=== PATIENT | female | born 1960 | race Hispanic/Latino ===

== ENCOUNTER 2017-10-17 18:47 | Emergency (ER) | payer OTHER ==
[2017-10-17] MEDS ORDERED: BENZONATATE 100 MG CAPSULE PO ONE (19:16)
[2017-10-17] MEDS ORDERED: IPRATROPIUM/ALBUTEROL SULFATE 3 ML SOLUTION IH ONE (19:16)
[2017-10-17 19:22] LABS: BASOPHILS % (AUTO) 0.1 % (0.0-5.0); EOSINOPHILS % (AUTO) 5.5 % (0.0-8.0); HEMATOCRIT 31.1 % (36-48); LYMPHOCYTES % (AUTO) 9.8 % (21.0-51.0); MEAN CORPUSCULAR HEMOGLOBIN 28.6 pg (27.0-33.0); MEAN CORPUSCULAR HGB CONC 34.6 g/dL (32.0-36.0); MEAN CORPUSCULAR VOLUME 82.8 fL (79-99); MONOCYTES % (AUTO) 10.7 % (3.0-13.0); NEUTROPHILS % (AUTO) 73.9 % (40.0-77.0); PLATELET COUNT (AUTO) 134 K/uL (130-400); RED BLOOD CELL COUNT(AUTO) 3.76 MIL/uL (4.00-5.50); RED CELL DISTRIBUTION WIDTH 15.6 % (11.0-15.5); WHITE BLOOD COUNT (AUTO) 10.7 K/uL (4.8-10.8)
[2017-10-17 19:33] LABS: CREATININE 0.9 mg/dL (0.5-1.5); POTASSIUM 3.3 mmol/L (3.5-5.1)
[2017-10-17 19:38] LABS: ALBUMIN 2.8 g/dL (3.5-5.0); BILIRUBIN,TOTAL 1.1 mg/dL (0.2-1.0); TOTAL PROTEIN, SERUM 8.2 g/dL (6.0-8.3)
[2017-10-17 19:49] LABS: APPEARANCE,URINE SL CLOUDY (CLEAR); BILIRUBIN,URINE NEGATIVE (NEGATIVE); COLOR,URINE YELLOW (YELLOW); GLUCOSE, URINE (UA) NEGATIVE (NEGATIVE); KETONES,URINE 5 mg/dL (NEGATIVE); LEUKOCYTE ESTERASE ,URINE NEGATIVE (NEGATIVE); NITRATE,URINE NEGATIVE (NEGATIVE); OCCULT BLOOD,URINE NEGATIVE (NEGATIVE); PROTEIN,URINE TRACE (NEGATIVE); UROBILINOGEN,URINE 0.2 mg/dL (0.2-1.0)
[2017-10-17 19:59] LABS: RBC,URINE 0-1 /HPF (0-1)
[2017-10-17 20:00] LABS: BACTERIA,URINE Few /HPF (None Seen); SQUAMOUS EPITHELIAL CELL,UR Moderate /LPF (0-2)
[2017-10-17] MEDS ORDERED: SODIUM CHLORIDE 0.9% 1000ML 1,000 ML IV ONE (21:08)
[2017-10-18] MEDS ORDERED: FOLI1TAB15 PO (20:42)
[2017-10-18] MEDS ORDERED: VALS1TAB77 PO (20:42)
[2017-10-18] MEDS ORDERED: CEFD300C3 PO (20:42)
[2017-10-18] MEDS ORDERED: IBUP-2077 PO (20:42)
[2017-10-18] MEDS ORDERED: ATOR20TA65 PO (20:42)
[2017-10-18] MEDS ORDERED: GLIM4TAB3 PO (20:42)
[2017-10-18] MEDS ORDERED: METF500T6 PO (20:42)
== END 2017-10-17 22:26 | disposition home or self-care (01) ==
LOC: EDH 18:47
DX: J18.9 Pneumonia, unspecified organism (principal); J11.1 Influenza due to unidentified influenza virus with other respiratory manifestations; E11.9 Type 2 diabetes mellitus without complications; E78.5 Hyperlipidemia, unspecified; I10 Essential (primary) hypertension; Z90.49 Acquired absence of other specified parts of digestive tract; Z90.710 Acquired absence of both cervix and uterus; Z85.72 Personal history of non-Hodgkin lymphomas
CPT/HCPCS: 36415; 71046; 80053; 81001; 82550; 84484; 85025; 87804 ×2; 94640; 96360; 99285; J7030

== ENCOUNTER 2017-10-18 09:54 | Inpatient (IN) | payer OTHER ==
[~2017-10-18] VITALS: Ht 154.9 cm; Wt 73.6 kg
[2017-10-18] MEDS ORDERED: SODIUM CHLORIDE 0.9% 1000ML 1,000 ML IV ONE (10:16)
[2017-10-18] MEDS ORDERED: AZITHROMYCIN 500MG+NS 250ML 250 ML IV ONE (10:17)
[2017-10-18] MEDS ORDERED: ACETAMINOPHEN 325 MG TAB ONE (10:28)
[2017-10-18 10:32] LABS: BASOPHILS % (AUTO) 0.2 % (0.0-5.0); EOSINOPHILS % (AUTO) 3.3 % (0.0-8.0); HEMATOCRIT 31.5 % (36-48); LYMPHOCYTES % (AUTO) 4.7 % (21.0-51.0); MEAN CORPUSCULAR HEMOGLOBIN 28.9 pg (27.0-33.0); MEAN CORPUSCULAR HGB CONC 34.4 g/dL (32.0-36.0); MEAN CORPUSCULAR VOLUME 83.8 fL (79-99); MONOCYTES % (AUTO) 9.1 % (3.0-13.0); NEUTROPHILS % (AUTO) 82.7 % (40.0-77.0); PLATELET COUNT (AUTO) 148 K/uL (130-400); RED BLOOD CELL COUNT(AUTO) 3.75 MIL/uL (4.00-5.50); RED CELL DISTRIBUTION WIDTH 15.4 % (11.0-15.5); WHITE BLOOD COUNT (AUTO) 10.9 K/uL (4.8-10.8)
[2017-10-18] MEDS ORDERED: IPRATROPIUM/ALBUTEROL SULFATE 3 ML SOLUTION IH ONE (10:33)
[2017-10-18 10:41] LABS: CREATININE 0.9 mg/dL (0.5-1.5); POTASSIUM 3.2 mmol/L (3.5-5.1)
[2017-10-18] MEDS ORDERED: ACETAMINOPHEN 325 MG TAB PO PRN (13:00)
[2017-10-18] MEDS ORDERED: ONDANSETRON HCL 4 MG/2 ML VIAL IVP PRN (13:00)
[2017-10-18 13:02] VITALS: BP 125/69
[2017-10-18] MEDS: MEROPENEM 1 GM VIAL IVP SCH ×2 (13:18→17:16)
[2017-10-18] MEDS: IPRATROPIUM/ALBUTEROL SULFATE 3 ML SOLUTION IH SCH ×3 (14:49→21:40)
[2017-10-18 16:00] VITALS: BP 123/60
[2017-10-18 19:00] VITALS: BP 114/62
[2017-10-18] MEDS: GUAIFENESIN-DM 200/20 MG 10 ML PO PRN (20:29)
[2017-10-18] MEDS: INSULIN HUMULIN R 100 UNIT/ML 3ML SQ SCH (20:36)
[2017-10-18] MEDS ORDERED: VALS1TAB77 PO (20:42)
[2017-10-18] MEDS ORDERED: GLIM4TAB3 PO (20:42)
[2017-10-18] MEDS ORDERED: ATOR20TA65 PO (20:42)
[2017-10-18] MEDS ORDERED: IBUP-2077 PO (20:42)
[2017-10-18] MEDS ORDERED: FOLI1TAB15 PO (20:42)
[2017-10-18] MEDS ORDERED: METF500T6 PO (20:42)
[2017-10-18] MEDS ORDERED: CEFD300C3 PO (20:42)
[2017-10-19 00:24] VITALS: BP 126/57
[2017-10-19] MEDS: MEROPENEM 1 GM VIAL IVP SCH ×4 (00:28→18:36)
[2017-10-19] MEDS: IPRATROPIUM/ALBUTEROL SULFATE 3 ML SOLUTION IH SCH ×6 (01:31→21:45)
[2017-10-19 04:00] VITALS: BP 119/58
[2017-10-19 04:09] LABS: BASOPHILS % (AUTO) 0.3 % (0.0-5.0); EOSINOPHILS % (AUTO) 4.4 % (0.0-8.0); HEMATOCRIT 27.4 % (36-48); LYMPHOCYTES % (AUTO) 6.1 % (21.0-51.0); MEAN CORPUSCULAR HEMOGLOBIN 28.8 pg (27.0-33.0); MEAN CORPUSCULAR HGB CONC 34.5 g/dL (32.0-36.0); MEAN CORPUSCULAR VOLUME 83.4 fL (79-99); MONOCYTES % (AUTO) 11.2 % (3.0-13.0); NUCLEATED RED BLOOD CELLS 0.1 % (0.0-0.19); PLATELET COUNT (AUTO) 110 K/uL (130-400); RED BLOOD CELL COUNT(AUTO) 3.29 MIL/uL (4.00-5.50)
[2017-10-19] MEDS: INSULIN HUMULIN R 100 UNIT/ML 3ML SQ SCH ×4 (06:06→20:27)
[2017-10-19 07:30] VITALS: BP 146/67
[2017-10-19] MEDS ORDERED: MORPHINE SULFATE 2 MG/ML 1ML SYG IVP PRN (07:30)
[2017-10-19] MEDS ORDERED: ACETAMINOPHEN-CODEINE 300/30MG TAB PO PRN ×2 (07:30)
[2017-10-19] MEDS ORDERED: LACTULOSE 20 GM/30 ML UDCUP PO PRN (07:30)
[2017-10-19] MEDS ORDERED: POTASSIUM CHLORIDE 20MEQ/100ML 100 ML IV PRN (07:30)
[2017-10-19] MEDS ORDERED: MAG HYDROX/AL HYDROX/SIMETH ES 30 ML SUSP UDCUP PO PRN (07:30)
[2017-10-19] MEDS ORDERED: NITROGLYCERIN 0.4 MG SL TAB SL PRN (07:30)
[2017-10-19] MEDS ORDERED: ACETAMINOPHEN 325 MG TAB PO PRN ×2 (07:30)
[2017-10-19] MEDS ORDERED: GUAIFENESIN-DM 200/20 MG 10 ML PO PRN (07:30)
[2017-10-19] MEDS ORDERED: POTASSIUM CHLORIDE 10% ELIXIR 20 MEQ/15 ML UDCUP PO PRN (07:30)
[2017-10-19] MEDS ORDERED: HYDRALAZINE HCL 20 MG/ML VIAL IV PRN (07:30)
[2017-10-19] MEDS ORDERED: LIDOCAINE HCL-MPF 1% 2ML VIAL IVP PRN (07:30)
[2017-10-19] MEDS ORDERED: ONDANSETRON HCL 4 MG/2 ML VIAL IV PRN (07:30)
[2017-10-19] MEDS ORDERED: KETOROLAC TROMETHAMINE 15MG/ML IV PRN (07:30)
[2017-10-19] MEDS ORDERED: MORPHINE SULFATE 4 MG/1ML SYG IVP PRN (07:30)
[2017-10-19] MEDS ORDERED: NON-FORMULARY MEDICATION 1 EACH (Valsartan/Hydrochlorothiazide (Valsartan-Hctz 160-25 mg T PO SCH (09:00)
[2017-10-19] MEDS: AZITHROMYCIN 500MG+NS 250ML 250 ML IV SCH (09:09)
[2017-10-19] MEDS: GLIMEPIRIDE 2 MG TABLET PO SCH (09:10)
[2017-10-19] MEDS: FOLIC ACID 1 MG TABLET PO SCH (09:10)
[2017-10-19] MEDS: METFORMIN HCL 500 MG TABLET PO SCH (09:10)
[2017-10-19] MEDS: LOSARTAN/HYDROCHLOROTHIAZIDE 50-12.5MG TABLET PO SCH (09:10)
[2017-10-19] MEDS: ENOXAPARIN SODIUM 40 MG/0.4 ML SYRINGE SQ SCH (09:12)
[2017-10-19] MEDS: ACETYLCYSTEINE 20% 200MG/ML 4ML VIAL IH SCH ×3 (09:45→17:21)
[2017-10-19 12:00] VITALS: BP 128/60
[2017-10-19 16:00] VITALS: BP 135/74
[2017-10-19 19:00] VITALS: BP 127/64
[2017-10-19] MEDS: ATORVASTATIN CALCIUM 20 MG TABLET PO SCH (20:36)
[2017-10-19] MEDS: GUAIFENESIN-DM 200/20 MG 10 ML PO PRN (20:36)
[2017-10-20] VITALS: BP 128/61
[2017-10-20] MEDS: MEROPENEM 1 GM VIAL IVP SCH ×4 (00:28→18:57)
[2017-10-20] MEDS: IPRATROPIUM/ALBUTEROL SULFATE 3 ML SOLUTION IH SCH ×6 (02:07→21:31)
[2017-10-20 04:00] VITALS: BP 134/64
[2017-10-20] MEDS: GUAIFENESIN-DM 200/20 MG 10 ML PO PRN (05:34)
[2017-10-20 05:52] LABS: MEAN CORPUSCULAR HEMOGLOBIN 29.3 pg (27.0-33.0); MEAN CORPUSCULAR HGB CONC 34.7 g/dL (32.0-36.0); MEAN CORPUSCULAR VOLUME 84.2 fL (79-99); PLATELET COUNT (AUTO) 124 K/uL (130-400); RED BLOOD CELL COUNT(AUTO) 3.32 MIL/uL (4.00-5.50); RED CELL DISTRIBUTION WIDTH 15.2 % (11.0-15.5); WHITE BLOOD COUNT (AUTO) 6.8 K/uL (4.8-10.8)
[2017-10-20 06:04] LABS: CREATININE 0.9 mg/dL (0.5-1.5)
[2017-10-20 06:12] LABS: POTASSIUM 2.9 mmol/L (3.5-5.1)
[2017-10-20] MEDS: POTASSIUM CHLORIDE 20 MEQ ERTAB PO PRN ×4 (06:40→14:05)
[2017-10-20] MEDS ORDERED: MAGNESIUM 2GM PREMIX 50ML 50 ML IV SCH (07:00)
[2017-10-20] MEDS: INSULIN HUMULIN R 100 UNIT/ML 3ML SQ SCH ×4 (07:30→20:53)
[2017-10-20 08:00] VITALS: BP 141/74
[2017-10-20] MEDS: GLIMEPIRIDE 2 MG TABLET PO SCH (09:09)
[2017-10-20] MEDS: FOLIC ACID 1 MG TABLET PO SCH (09:10)
[2017-10-20] MEDS: METFORMIN HCL 500 MG TABLET PO SCH (09:10)
[2017-10-20] MEDS: LOSARTAN/HYDROCHLOROTHIAZIDE 50-12.5MG TABLET PO SCH (09:11)
[2017-10-20] MEDS: AZITHROMYCIN 500MG+NS 250ML 250 ML IV SCH (09:13)
[2017-10-20] MEDS: ENOXAPARIN SODIUM 40 MG/0.4 ML SYRINGE SQ SCH (09:14)
[2017-10-20 11:28] VITALS: BP 127/70
[2017-10-20] MEDS: ACETYLCYSTEINE 20% 200MG/ML 4ML VIAL IH SCH ×2 (13:24→21:31)
[2017-10-20 16:00] VITALS: BP 134/78
[2017-10-20 19:00] VITALS: BP 117/72
[2017-10-20] MEDS: ATORVASTATIN CALCIUM 20 MG TABLET PO SCH (20:50)
[2017-10-21] VITALS (7 sets, daily range): BP systolic 118–133; BP diastolic 61–75
[2017-10-21] MEDS: MEROPENEM 1 GM VIAL IVP SCH ×4 (00:33→20:45)
[2017-10-21] MEDS: IPRATROPIUM/ALBUTEROL SULFATE 3 ML SOLUTION IH SCH ×6 (01:41→22:29)
[2017-10-21] MEDS: ACETYLCYSTEINE 20% 200MG/ML 4ML VIAL IH SCH ×3 (05:40→22:29)
[2017-10-21] MEDS: INSULIN HUMULIN R 100 UNIT/ML 3ML SQ SCH ×4 (06:28→20:46)
[2017-10-21 08:58] LABS: CREATININE 0.9 mg/dL (0.5-1.5); MAGNESIUM 1.7 mg/dL (1.80-2.40); POTASSIUM 3.6 mmol/L (3.5-5.1)
[2017-10-21] MEDS: FLUTICASONE PROPIONATE 50MCG/SPRAY 16 GM BOTTLE EN SCH (09:59)
[2017-10-21] MEDS: FOLIC ACID 1 MG TABLET PO SCH (09:59)
[2017-10-21] MEDS: LOSARTAN/HYDROCHLOROTHIAZIDE 50-12.5MG TABLET PO SCH (10:05)
[2017-10-21] MEDS: METFORMIN HCL 500 MG TABLET PO SCH (10:05)
[2017-10-21] MEDS: POTASSIUM CHLORIDE 20 MEQ ERTAB PO PRN ×2 (10:06→18:46)
[2017-10-21] MEDS: ENOXAPARIN SODIUM 40 MG/0.4 ML SYRINGE SQ SCH (10:07)
[2017-10-21] MEDS: AZITHROMYCIN 500MG+NS 250ML 250 ML IV SCH (10:08)
[2017-10-21] MEDS: GLIMEPIRIDE 2 MG TABLET PO SCH (10:23)
[2017-10-21] MEDS ORDERED: VANCOMYCIN 1GM+NS 250ML 250 ML IV ONE (15:45)
[2017-10-21] MEDS ORDERED: VANCOMYCIN PROTOCOL PER PHARMACY IV SCH (15:45)
[2017-10-21] MEDS ORDERED: LIDOCAINE HCL 2% JELLY 5 ML TP ONE (18:00)
[2017-10-21] MEDS: ATORVASTATIN CALCIUM 20 MG TABLET PO SCH (20:45)
[2017-10-22] MEDS: MEROPENEM 1 GM VIAL IVP SCH ×4 (02:08→23:24)
[2017-10-22] MEDS: IPRATROPIUM/ALBUTEROL SULFATE 3 ML SOLUTION IH SCH ×6 (02:29→21:54)
[2017-10-22 03:20] VITALS: BP 117/67
[2017-10-22] MEDS: INSULIN HUMULIN R 100 UNIT/ML 3ML SQ SCH ×3 (06:25→20:55)
[2017-10-22] MEDS: ACETYLCYSTEINE 20% 200MG/ML 4ML VIAL IH SCH ×3 (06:54→21:54)
[2017-10-22 07:00] VITALS: BP 124/65
[2017-10-22] MEDS: GLIMEPIRIDE 2 MG TABLET PO SCH (08:41)
[2017-10-22] MEDS: LOSARTAN/HYDROCHLOROTHIAZIDE 50-12.5MG TABLET PO SCH (08:42)
[2017-10-22] MEDS: FLUTICASONE PROPIONATE 50MCG/SPRAY 16 GM BOTTLE EN SCH (08:42)
[2017-10-22] MEDS: ENOXAPARIN SODIUM 40 MG/0.4 ML SYRINGE SQ SCH (08:43)
[2017-10-22] MEDS: METFORMIN HCL 500 MG TABLET PO SCH (08:43)
[2017-10-22] MEDS: AZITHROMYCIN 500MG+NS 250ML 250 ML IV SCH (08:43)
[2017-10-22] MEDS: FOLIC ACID 1 MG TABLET PO SCH (08:43)
[2017-10-22 12:00] VITALS: BP 107/68
[2017-10-22 16:00] VITALS: BP 135/75
[2017-10-22 20:10] VITALS: BP 132/68
[2017-10-22] MEDS: ATORVASTATIN CALCIUM 20 MG TABLET PO SCH (20:59)
[2017-10-22 23:36] VITALS: BP 123/63
[2017-10-23] MEDS: IPRATROPIUM/ALBUTEROL SULFATE 3 ML SOLUTION IH SCH ×6 (02:12→22:16)
[2017-10-23] MEDS: GUAIFENESIN-DM 200/20 MG 10 ML PO PRN ×2 (02:21→22:16)
[2017-10-23 04:02] VITALS: BP 125/57
[2017-10-23] MEDS: MEROPENEM 1 GM VIAL IVP SCH ×4 (06:02→23:31)
[2017-10-23] MEDS: ACETYLCYSTEINE 20% 200MG/ML 4ML VIAL IH SCH ×4 (06:10→18:11)
[2017-10-23] MEDS: INSULIN HUMULIN R 100 UNIT/ML 3ML SQ SCH ×4 (06:53→21:00)
[2017-10-23 08:00] VITALS: BP 137/63
[2017-10-23] MEDS: GLIMEPIRIDE 2 MG TABLET PO SCH (09:25)
[2017-10-23] MEDS: FOLIC ACID 1 MG TABLET PO SCH (10:39)
[2017-10-23] MEDS: LOSARTAN/HYDROCHLOROTHIAZIDE 50-12.5MG TABLET PO SCH (10:40)
[2017-10-23] MEDS: METFORMIN HCL 500 MG TABLET PO SCH (10:40)
[2017-10-23] MEDS: FLUTICASONE PROPIONATE 50MCG/SPRAY 16 GM BOTTLE EN SCH (10:40)
[2017-10-23] MEDS: AZITHROMYCIN 500MG+NS 250ML 250 ML IV SCH (10:40)
[2017-10-23] MEDS: ENOXAPARIN SODIUM 40 MG/0.4 ML SYRINGE SQ SCH (10:45)
[2017-10-23 12:00] VITALS: BP 129/68
[2017-10-23] MEDS ORDERED: ALTEPLASE 2 MG/2 ML IVCATH SCH (15:15)
[2017-10-23 16:00] VITALS: BP 129/74
[2017-10-23] MEDS: ATORVASTATIN CALCIUM 20 MG TABLET PO SCH (22:16)
[2017-10-23 23:00] VITALS: BP 132/65
[2017-10-24] MEDS: IPRATROPIUM/ALBUTEROL SULFATE 3 ML SOLUTION IH SCH ×7 (01:58→21:58)
[2017-10-24] MEDS ORDERED: ALTEPLASE 2 MG/2 ML IVCATH SCH (03:45)
[2017-10-24 03:55] VITALS: BP 125/63
[2017-10-24 06:14] LABS: HEMATOCRIT 28.5 % (36-48); MEAN CORPUSCULAR HEMOGLOBIN 28.5 pg (27.0-33.0); MEAN CORPUSCULAR HGB CONC 33.9 g/dL (32.0-36.0); MEAN CORPUSCULAR VOLUME 83.9 fL (79-99); PLATELET COUNT (AUTO) 99 K/uL (130-400); RED BLOOD CELL COUNT(AUTO) 3.39 MIL/uL (4.00-5.50); RED CELL DISTRIBUTION WIDTH 15.2 % (11.0-15.5); WHITE BLOOD COUNT (AUTO) 4.6 K/uL (4.8-10.8)
[2017-10-24 06:21] LABS: CREATININE 0.8 mg/dL (0.5-1.5); POTASSIUM 3.4 mmol/L (3.5-5.1)
[2017-10-24] MEDS: MEROPENEM 1 GM VIAL IVP SCH ×3 (06:39→18:00)
[2017-10-24] MEDS: INSULIN HUMULIN R 100 UNIT/ML 3ML SQ SCH ×4 (07:21→20:21)
[2017-10-24 07:24] VITALS: BP 127/61
[2017-10-24] MEDS: AZITHROMYCIN 500MG+NS 250ML 250 ML IV SCH (09:02)
[2017-10-24] MEDS: ENOXAPARIN SODIUM 40 MG/0.4 ML SYRINGE SQ SCH (09:03)
[2017-10-24] MEDS: GLIMEPIRIDE 2 MG TABLET PO SCH (09:04)
[2017-10-24] MEDS: LOSARTAN/HYDROCHLOROTHIAZIDE 50-12.5MG TABLET PO SCH (09:04)
[2017-10-24] MEDS: METFORMIN HCL 500 MG TABLET PO SCH (09:04)
[2017-10-24] MEDS: FOLIC ACID 1 MG TABLET PO SCH (09:04)
[2017-10-24] MEDS: FLUTICASONE PROPIONATE 50MCG/SPRAY 16 GM BOTTLE EN SCH (09:05)
[2017-10-24 11:27] VITALS: BP 134/71
[2017-10-24 16:00] VITALS: BP 140/83
[2017-10-24 19:15] VITALS: BP 129/67
[2017-10-24] MEDS: ATORVASTATIN CALCIUM 20 MG TABLET PO SCH (21:39)
[2017-10-24] MEDS: GUAIFENESIN-DM 200/20 MG 10 ML PO PRN (21:39)
[2017-10-24 23:45] VITALS: BP 133/66
[2017-10-25] MEDS: IPRATROPIUM/ALBUTEROL SULFATE 3 ML SOLUTION IH SCH ×6 (01:59→14:09)
[2017-10-25] MEDS: MEROPENEM 1 GM VIAL IVP SCH ×3 (02:07→11:19)
[2017-10-25 03:50] VITALS: BP 128/67
[2017-10-25] MEDS: INSULIN HUMULIN R 100 UNIT/ML 3ML SQ SCH ×2 (06:29→11:30)
[2017-10-25 08:00] VITALS: BP 136/66
[2017-10-25] MEDS: FOLIC ACID 1 MG TABLET PO SCH (11:28)
[2017-10-25] MEDS: AZITHROMYCIN 500MG+NS 250ML 250 ML IV SCH (11:28)
[2017-10-25] MEDS: METFORMIN HCL 500 MG TABLET PO SCH (11:28)
[2017-10-25] MEDS: LOSARTAN/HYDROCHLOROTHIAZIDE 50-12.5MG TABLET PO SCH (11:29)
[2017-10-25] MEDS: GLIMEPIRIDE 2 MG TABLET PO SCH (11:29)
[2017-10-25] MEDS: ENOXAPARIN SODIUM 40 MG/0.4 ML SYRINGE SQ SCH (11:33)
[2017-10-25] MEDS: FLUTICASONE PROPIONATE 50MCG/SPRAY 16 GM BOTTLE EN SCH (11:37)
[2017-10-25 12:00] VITALS: BP 139/73
[2017-10-25] MEDS ORDERED: PNEUMOCOCCAL VACCINE POLYVALENT 0.5 ML/VIAL [PPV] ONE (13:28)
[2017-10-25] MEDS ORDERED: HEPARIN SODIUM/PF 100UNIT/ML 5ML SYRINGE IV SCH (13:45)
[2017-10-25] MEDS ORDERED: PNEUMOCOCCAL VACCINE POLYVALENT 0.5 ML/VIAL [PPV] IM SCH (14:00)
== END 2017-10-25 15:20 | disposition home or self-care (01) | DRG 194 ==
LOC: EDH 09:54 → EDHIP 09:55 → 3AH 11:29
PROVIDERS: ADMIT Internal Medicine Hematology & Oncology; ATTEND Internal Medicine Hematology & Oncology
DX: J15.9 Unspecified bacterial pneumonia (principal); C85.90 Non-Hodgkin lymphoma, unspecified, unspecified site; D89.9 Disorder involving the immune mechanism, unspecified; C81.90 Hodgkin lymphoma, unspecified, unspecified site; D47.3 Essential (hemorrhagic) thrombocythemia; E11.9 Type 2 diabetes mellitus without complications; E78.5 Hyperlipidemia, unspecified; I10 Essential (primary) hypertension; Z83.3 Family history of diabetes mellitus; Z90.710 Acquired absence of both cervix and uterus; Z90.49 Acquired absence of other specified parts of digestive tract; Z92.21 Personal history of antineoplastic chemotherapy; Z28.21 Immunization not carried out because of patient refusal
CPT/HCPCS: 36415; 71045; 71046; 71250; 80048; 80053; 81001; 82550; 82948; 83735; 83880; 84484; 85025; 85027; 87040; 87071; 87205; 87804; 90732; 94640; 94664; 96360; A4218; G0009; J0456; J1642; J1650; J1815; J2185; J2405; J2997; J3370; J3475; J3480; J3490; J7030; J7608

== ENCOUNTER 2018-08-06 20:37 | Emergency (ER) | payer OTHER ==
[~2018-08-06 20:37] MED LIST: ATOR20TA65 PO; FOLI1TAB15 PO; GLIM4TAB3 PO; IBUP-2077 PO; METF-444 PO; VALS1TAB77 PO
== END 2018-08-06 20:48 | disposition left against medical advice (07) ==
LOC: EDH 20:37
DX: R55 Syncope and collapse (principal); Z53.21 Procedure and treatment not carried out due to patient leaving prior to being seen by health care provider

== ENCOUNTER → 2019-03-27 | Outpatient (CLI) | payer OTHER | END | disposition home or self-care (01) | LOC: RAH 08:48 | PROVIDERS: ATTEND Family Medicine | DX: Z12.31 Encounter for screening mammogram for malignant neoplasm of breast (principal) | CPT/HCPCS: 77067 ==

== ENCOUNTER 2019-11-11 16:18 | Emergency (ER) | payer OTHER ==
[~2019-11-11 16:18] MED LIST changes: -GLIM4TAB3 PO; +GLIM4TAB36 PO
[2019-11-11 17:01] LABS: BASOPHILS % (AUTO) 0.5 % (0.0-5.0); EOSINOPHILS % (AUTO) 3.8 % (0.0-8.0); HEMATOCRIT 33.9 % (36-48); LYMPHOCYTES % (AUTO) 14.2 % (21.0-51.0); MEAN CORPUSCULAR HEMOGLOBIN 29.8 pg (27.0-33.0); MEAN CORPUSCULAR HGB CONC 33.6 g/dL (32.0-36.0); MEAN CORPUSCULAR VOLUME 88.5 fL (79-99); MONOCYTES % (AUTO) 6.5 % (3.0-13.0); NEUTROPHILS % (AUTO) 73.6 % (40.0-77.0); PLATELET COUNT (AUTO) 39 K/uL (130-400); RED BLOOD CELL COUNT(AUTO) 3.83 MIL/uL (4.00-5.50); RED CELL DISTRIBUTION WIDTH 13.2 % (11.0-15.5); WHITE BLOOD COUNT (AUTO) 5.6 K/uL (4.8-10.8)
[2019-11-11 17:33] LABS: APPEARANCE,URINE Clear (CLEAR); BILIRUBIN,URINE Negative (NEGATIVE); COLOR,URINE Yellow (YELLOW); GLUCOSE, URINE (UA) Negative (NEGATIVE); KETONES,URINE Negative (NEGATIVE); LEUKOCYTE ESTERASE ,URINE Small (NEGATIVE); NITRATE,URINE Negative (NEGATIVE); OCCULT BLOOD,URINE Negative (NEGATIVE); PH,URINE 7.5 (5.0-8.0); PROTEIN,URINE Negative (NEGATIVE); UROBILINOGEN,URINE 0.2 mg/dL (0.2-1.0)
[2019-11-11] MEDS ORDERED: ORPHENADRINE CITRATE 30 MG/ML ML ONE (17:33)
[2019-11-11] MEDS ORDERED: KETOROLAC TROMETHAMINE 60 MG/2 ML VIAL ONE (17:34)
[2019-11-11 17:42] LABS: BACTERIA,URINE Few /HPF (None Seen); RBC,URINE 0-1 /HPF (0-1)
[2019-11-11 17:43] LABS: SQUAMOUS EPITHELIAL CELL,UR Moderate /HPF (0-2)
[2019-11-27] MEDS ORDERED: ELTR50TA PO (18:49)
== END 2019-11-11 18:43 | disposition home or self-care (01) ==
LOC: EDH 16:18
DX: Z04.1 Encounter for examination and observation following transport accident (principal); E11.9 Type 2 diabetes mellitus without complications; E78.5 Hyperlipidemia, unspecified; I10 Essential (primary) hypertension; Z90.49 Acquired absence of other specified parts of digestive tract; Z90.710 Acquired absence of both cervix and uterus; V43.54XA Car driver injured in collision with van in traffic accident, initial encounter; Y93.89 Activity, other specified; Y92.488 Other paved roadways as the place of occurrence of the external cause; Y99.8 Other external cause status
CPT/HCPCS: 36415; 72100; 81001; 85025; 96372 ×2; 99284; J1885; J2360

== ENCOUNTER 2019-11-27 12:20 | Inpatient (IN) | payer OTHER ==
[~2019-11-27] VITALS: Ht 154.9 cm; Wt 69.6 kg
[2019-11-27 13:02] LABS: BASOPHILS % (AUTO) 0.3 % (0.0-5.0); EOSINOPHILS % (AUTO) 0.7 % (0.0-8.0); HEMATOCRIT 39.4 % (36-48); LYMPHOCYTES % (AUTO) 13.9 % (21.0-51.0); MEAN CORPUSCULAR HEMOGLOBIN 29.8 pg (27.0-33.0); MEAN CORPUSCULAR HGB CONC 34.3 g/dL (32.0-36.0); MONOCYTES % (AUTO) 5.8 % (3.0-13.0); NEUTROPHILS % (AUTO) 75.7 % (40.0-77.0); NUCLEATED RED BLOOD CELLS 0.1 % (0.0-0.19); RED BLOOD CELL COUNT(AUTO) 4.53 MIL/uL (4.00-5.50); RED CELL DISTRIBUTION WIDTH 13.4 % (11.0-15.5); WHITE BLOOD COUNT (AUTO) 20.3 K/uL (4.8-10.8)
[2019-11-27 13:13] LABS: INR 1.02 (0.85-1.15); PARTIAL THROMBOPLASTIN TIME 23.5 SEC (26.3-35.5)
[2019-11-27 13:17] LABS: CREATININE 1.2 mg/dL (0.5-1.5); POTASSIUM 3.4 mmol/L (3.5-5.1)
[2019-11-27 13:20] LABS: ALBUMIN 4.2 g/dL (3.5-5.0); BILIRUBIN,TOTAL 2.2 mg/dL (0.2-1.0); TOTAL PROTEIN, SERUM 7.8 g/dL (6.0-8.3)
[2019-11-27] MEDS ORDERED: ZOSYN 3.375GM+NS 50ML 50 ML IV ONE (13:27)
[2019-11-27] MEDS ORDERED: SODIUM CHLORIDE 0.9% 1000ML 1,000 ML IV ONE (13:27)
[2019-11-27] MEDS ORDERED: IOHEXOL-350 75 ML VIAL IV ONE (13:30)
[2019-11-27 13:32] LABS: PLATELET COUNT (AUTO) 17 K/uL (130-400)
[2019-11-27 13:38] LABS: B-TYPE NATRIURETIC PEPTIDE 142 pg/mL (0-100)
[2019-11-27 14:43] LABS: ABG BASE EXCESS 1.2 mmol/L (-2.0-3.0); ABG HCO3 24.7 mmol/L (21.0-28.0); ABG OXYGEN SATURATION 97.1 % (95.0-99.0); ABG PCO2 36 mmHg (32-45)
[2019-11-27] MEDS: ENOXAPARIN SODIUM 80 MG/0.8 ML SQ SCH (15:30)
[2019-11-27] MEDS: SODIUM CHLORIDE 0.9% 1000ML 1,000 ML IV SCH (15:30)
[2019-11-27 18:21] VITALS: BP 157/91
[2019-11-27] MEDS ORDERED: ELTR50TA PO ×2 (18:49)
[2019-11-27] MEDS ORDERED: METH8TAB6 PO (18:49)
[2019-11-27 20:30] VITALS: BP 124/67
[2019-11-27] MEDS: ATORVASTATIN CALCIUM 20 MG TABLET PO SCH (21:57)
[2019-11-27] MEDS ORDERED: LACTATED RINGERS 1000ML IV SCH (22:15)
[2019-11-27] MEDS ORDERED: LACTATED RINGERS 1000ML 2,000 ML IV ONE (22:22)
[2019-11-27] MEDS: METHYLPREDNISOLONE 4 MG TABLET PO SCH (22:25)
[2019-11-28] VITALS (7 sets, daily range): BP systolic 137–164; BP diastolic 79–91
[2019-11-28] MEDS ORDERED: LACTATED RINGERS 1000ML 1,000 ML IV ONE (03:55)
[2019-11-28] MEDS: ENOXAPARIN SODIUM 80 MG/0.8 ML SQ SCH (05:05)
[2019-11-28 06:51] LABS: HEMATOCRIT 36.7 % (36-48); MEAN CORPUSCULAR HEMOGLOBIN 30.5 pg (27.0-33.0); MEAN CORPUSCULAR HGB CONC 34.6 g/dL (32.0-36.0); PLATELET COUNT (AUTO) 37 K/uL (130-400); RED BLOOD CELL COUNT(AUTO) 4.17 MIL/uL (4.00-5.50); RED CELL DISTRIBUTION WIDTH 13.4 % (11.0-15.5); WHITE BLOOD COUNT (AUTO) 16.3 K/uL (4.8-10.8)
[2019-11-28 06:52] LABS: CREATININE 0.8 mg/dL (0.5-1.5); POTASSIUM 3.9 mmol/L (3.5-5.1)
[2019-11-28] MEDS ORDERED: METHYLPREDNISOLONE SOD SUCC 125MG/2ML VIAL IVP SCH (07:45)
[2019-11-28] MEDS: SODIUM CHLORIDE 0.9% 1000ML 1,000 ML IV SCH (08:10)
[2019-11-28] MEDS: VALSARTAN PO SCH (09:00)
[2019-11-28] MEDS: HYDROCHLOROTHIAZIDE PO SCH (09:00)
[2019-11-28] MEDS: FOLIC ACID 1 MG TABLET PO SCH (09:00)
[2019-11-28] MEDS: METFORMIN HCL 500 MG TABLET PO SCH (09:00)
[2019-11-28] MEDS ORDERED: ENOXAPARIN SODIUM 80 MG/0.8 ML SQ SCH (09:00)
[2019-11-28] MEDS: METHYLPREDNISOLONE 4 MG TABLET PO SCH ×3 (10:00→21:23)
[2019-11-28] MEDS: GLIMEPIRIDE 2 MG TABLET PO SCH (10:00)
[2019-11-28] MEDS ORDERED: IODIXANOL 320 MG/ML 100 ML VIAL ONE (10:55)
[2019-11-28] MEDS ORDERED: LIDOCAINE HCL 1% MDV 50ML VIAL ONE (10:55)
--- NOTE | 2019-11-28 16:59 | NUR ---
INITIAL: Pt currently in isolation, no answer to room phone call. Call placed to next of kin. Son Amreico Bustillos answered phone call. Per Americo , pt lives w her spouse. Prior to admission she was independent w ambulation and ADLs. She does not own any DME or receive services. Per Americo his father drives where needed. Americo mentions that dcp is for pt to return home. CM to continue to follow and wait for Md recommendations. Addendum: 11/28/19 at 1702 by MARVIN ZHAO Amended: Links added.
[2019-11-28] MEDS: ATORVASTATIN CALCIUM 20 MG TABLET PO SCH (21:23)
[2019-11-28] MEDS: INSULIN HUMULIN R 100 UNIT/ML 3ML SQ SCH (22:02)
[2019-11-29] VITALS (7 sets, daily range): BP systolic 126–167; BP diastolic 69–78
[2019-11-29] MEDS: SODIUM CHLORIDE 0.9% 1000ML 1,000 ML IV SCH ×2 (00:50→17:30)
[2019-11-29 04:51] LABS: BASOPHILS % (AUTO) 0.3 % (0.0-5.0); EOSINOPHILS % (AUTO) 0.1 % (0.0-8.0); HEMATOCRIT 36.2 % (36-48); LYMPHOCYTES % (AUTO) 5.5 % (21.0-51.0); MEAN CORPUSCULAR HEMOGLOBIN 30.3 pg (27.0-33.0); MEAN CORPUSCULAR HGB CONC 34.5 g/dL (32.0-36.0); MEAN CORPUSCULAR VOLUME 87.9 fL (79-99); MONOCYTES % (AUTO) 5.1 % (3.0-13.0); NEUTROPHILS % (AUTO) 84.8 % (40.0-77.0); PLATELET COUNT (AUTO) 27 K/uL (130-400); RED BLOOD CELL COUNT(AUTO) 4.12 MIL/uL (4.00-5.50); RED CELL DISTRIBUTION WIDTH 13.2 % (11.0-15.5); WHITE BLOOD COUNT (AUTO) 18.8 K/uL (4.8-10.8)
[2019-11-29] MEDS: INSULIN HUMULIN R 100 UNIT/ML 3ML SQ SCH ×4 (06:26→19:55)
[2019-11-29 08:26] LABS: CREATININE 0.8 mg/dL (0.5-1.5); POTASSIUM 3.5 mmol/L (3.5-5.1)
[2019-11-29] MEDS: GLIMEPIRIDE 2 MG TABLET PO SCH (08:27)
[2019-11-29] MEDS: METHYLPREDNISOLONE 4 MG TABLET PO SCH ×3 (08:28→19:52)
[2019-11-29] MEDS: FOLIC ACID 1 MG TABLET PO SCH (08:28)
[2019-11-29] MEDS: HYDROCHLOROTHIAZIDE PO SCH (08:28)
[2019-11-29] MEDS: VALSARTAN PO SCH (08:28)
[2019-11-29] MEDS: METFORMIN HCL 500 MG TABLET PO SCH (08:51)
[2019-11-29] MEDS: PANTOPRAZOLE SODIUM 40 MG TABLET.DR PO SCH (16:43)
[2019-11-29] MEDS: ATORVASTATIN CALCIUM 20 MG TABLET PO SCH (19:51)
[2019-11-30 03:39] VITALS: BP 130/58
[2019-11-30 04:15] LABS: HEMATOCRIT 35.8 % (36-48); MEAN CORPUSCULAR HEMOGLOBIN 29.8 pg (27.0-33.0); MEAN CORPUSCULAR HGB CONC 34.6 g/dL (32.0-36.0); MEAN CORPUSCULAR VOLUME 86.1 fL (79-99); PLATELET COUNT (AUTO) 17 K/uL (130-400); RED BLOOD CELL COUNT(AUTO) 4.16 MIL/uL (4.00-5.50); RED CELL DISTRIBUTION WIDTH 13.3 % (11.0-15.5); WHITE BLOOD COUNT (AUTO) 19.2 K/uL (4.8-10.8)
[2019-11-30 04:24] LABS: CREATININE 0.9 mg/dL (0.5-1.5); POTASSIUM 3.4 mmol/L (3.5-5.1)
[2019-11-30] MEDS: INSULIN HUMULIN R 100 UNIT/ML 3ML SQ SCH ×4 (06:22→20:42)
[2019-11-30] MEDS: PANTOPRAZOLE SODIUM 40 MG TABLET.DR PO SCH ×2 (06:22→16:30)
--- NOTE | 2019-11-30 07:45 | NUR ---
ASSESSMENT ENCOUNTERED PT IN HIGH LUND'S POSITION, A&OX3, CALM COOPERATIVE AND DOES NOT APPEAR TO BE IN ANY DISTRESS NOR ANY NEURO DEFICITS PRESENT. PT DENIES PAIN, DIZZINESS OR LIGHTHEADEDNESS BUT DOES C/O DYSPNEA ON EXERTION. PT IS AMBULATORY, GAIT SLOW BUT STEADY WITH STAND BY ASSIST AND O2NC EXTENSION TUBING. CALL LIGHT WITHIN REACH.
[2019-11-30] MEDS: METFORMIN HCL 500 MG TABLET PO SCH (08:23)
[2019-11-30] MEDS: METHYLPREDNISOLONE 4 MG TABLET PO SCH ×3 (08:25→20:41)
[2019-11-30] MEDS: HYDROCHLOROTHIAZIDE PO SCH (08:25)
[2019-11-30] MEDS: GLIMEPIRIDE 2 MG TABLET PO SCH (08:25)
[2019-11-30] MEDS: VALSARTAN PO SCH (08:25)
[2019-11-30] MEDS: FOLIC ACID 1 MG TABLET PO SCH (08:30)
[2019-11-30 08:38] VITALS: BP 134/75
[2019-11-30] MEDS: SODIUM CHLORIDE 0.9% 1000ML 1,000 ML IV SCH ×2 (10:10→19:24)
[2019-11-30 12:31] VITALS: BP 134/69
--- NOTE | 2019-11-30 13:55 | NUR ---
O2SATS POST AMBULATION TO BATHROOM AND BACK TO CHAIR, ON ROOM AIR, GAIT SLOW AND STEADY WITH STAND BY ASSIST, O2SATS 91%
[2019-11-30 16:15] VITALS: BP 134/72
--- NOTE | 2019-11-30 16:16 | NUR ---
DC PLAN GOT ORDER FOR . CALLED [facility] SAID READY FOR DISCHARGE. MADE PACKET COULD NOT FIND CHRONIC LUNG CONDITION. WENT OVER THE CASE WITH ARMAAN SAID THAT NON HODGKINS LYMPHOMA, EMBOLI DO NOT QUALIFY FOR . SENT MESSAGE TO [facility] TP ASK IF THERE IS A CHRONIC CONDITION. Addendum: 11/30/19 at 1631 by EDWAR MAYNARD RN CM Amended: Links added.
[2019-11-30 20:15] VITALS: BP 136/68
[2019-11-30] MEDS: ATORVASTATIN CALCIUM 20 MG TABLET PO SCH (20:41)
[2019-11-30 23:32] VITALS: BP 112/58
[2019-12-01 03:20] VITALS: BP 116/54
[2019-12-01 05:09] LABS: HEMATOCRIT 34.4 % (36-48); MEAN CORPUSCULAR HEMOGLOBIN 30.9 pg (27.0-33.0); MEAN CORPUSCULAR HGB CONC 35.5 g/dL (32.0-36.0); MEAN CORPUSCULAR VOLUME 87.1 fL (79-99); NUCLEATED RED BLOOD CELLS 0.1 % (0.0-0.19); PLATELET COUNT (AUTO) 19 K/uL (130-400); RED BLOOD CELL COUNT(AUTO) 3.95 MIL/uL (4.00-5.50); RED CELL DISTRIBUTION WIDTH 13.3 % (11.0-15.5); WHITE BLOOD COUNT (AUTO) 18.1 K/uL (4.8-10.8)
[2019-12-01 05:24] LABS: CREATININE 0.9 mg/dL (0.5-1.5); POTASSIUM 3.4 mmol/L (3.5-5.1)
[2019-12-01] MEDS: INSULIN HUMULIN R 100 UNIT/ML 3ML SQ SCH ×4 (06:30→21:36)
[2019-12-01] MEDS: PANTOPRAZOLE SODIUM 40 MG TABLET.DR PO SCH ×2 (06:34→16:55)
[2019-12-01] MEDS: FOLIC ACID 1 MG TABLET PO SCH (09:04)
[2019-12-01] MEDS: METHYLPREDNISOLONE 4 MG TABLET PO SCH ×3 (09:04→21:34)
[2019-12-01] MEDS: METFORMIN HCL 500 MG TABLET PO SCH (09:05)
[2019-12-01] MEDS: GLIMEPIRIDE 2 MG TABLET PO SCH (09:05)
[2019-12-01] MEDS: HYDROCHLOROTHIAZIDE PO SCH (09:06)
[2019-12-01] MEDS: VALSARTAN PO SCH (09:06)
[2019-12-01 12:36] VITALS: BP 129/62
[2019-12-01 16:42] VITALS: BP 134/59
[2019-12-01] MEDS: SODIUM CHLORIDE 0.9% 1000ML 1,000 ML IV SCH (19:14)
[2019-12-01 20:22] VITALS: BP 138/55
[2019-12-01] MEDS: ATORVASTATIN CALCIUM 20 MG TABLET PO SCH (21:34)
[2019-12-01 23:12] VITALS: BP 127/58
[2019-12-02 03:21] VITALS: BP 122/63
[2019-12-02] MEDS: INSULIN HUMULIN R 100 UNIT/ML 3ML SQ SCH ×2 (07:14→12:24)
[2019-12-02] MEDS: METHYLPREDNISOLONE 4 MG TABLET PO SCH (07:14)
[2019-12-02] MEDS: METFORMIN HCL 500 MG TABLET PO SCH (07:14)
[2019-12-02] MEDS: FOLIC ACID 1 MG TABLET PO SCH (07:14)
[2019-12-02] MEDS: PANTOPRAZOLE SODIUM 40 MG TABLET.DR PO SCH (07:14)
[2019-12-02] MEDS: VALSARTAN PO SCH (07:20)
[2019-12-02] MEDS: HYDROCHLOROTHIAZIDE PO SCH (07:20)
--- NOTE | 2019-12-02 08:00 | NUR ---
ASSESSMENT PT IS AAOX3 DENIES CP DENIES SOB DENIES NV NO COMPLAINTS RESTING IN BED. AM MEDS GIVEN AND TOLERATED CALL LIGHT WITHIN REACH.
[2019-12-02 08:07] VITALS: BP_SYST 145; BP_SYST 150; BP_DIAS 109; BP_DIAS 67
[2019-12-02] MEDS: GLIMEPIRIDE 2 MG TABLET PO SCH (08:22)
--- NOTE | 2019-12-02 13:23 | NUR ---
DC PLAN VERBAL CONSENT RECEIVED. COSIGNED BY NURSING STAFF. INFO SENT TO [facility]. SPOKE TO REP THIS MORNING. SAID THEY RECEIVED. WILL DELIVER TO ER. ADITI PICKED UP FROM ER AND GAVE TANK TO NURSE WITH INSTRUCTIONS ON OPENING AND SETTINGS WHEN PATIENT READY TO DC HOME SINCE IT IS A SMALL TANK. NURSE VERBALIZED UNDERSTANDING. Addendum: 12/02/19 at 1326 by EDWAR MAYNARD RN CM Amended: Links added.
--- NOTE | 2019-12-02 16:02 | NUR ---
RD Screen - LOS x 5 Pt admitted with Pulmonary Embolism, Hx of non-Hodgkin's lymphoma, DM, HLD, HTN. Pt tolerating 75gm CCD. Elevated BG levels with steroid medications. RD to continue to monitor nutritional status. Please notify FRAN as additional nutrition concerns arise. Thank you. Addendum: 12/02/19 at [address] RD Amended: Links added.
== END 2019-12-02 13:00 | disposition home or self-care (01) | DRG 252 ==
LOC: EDH 12:20 → EDHIP 15:00 → 2DH 17:28
PROVIDERS: ADMIT Internal Medicine Hematology & Oncology; ATTEND Internal Medicine Hematology & Oncology
PROC: 06H03DZ Insertion of Intraluminal Device into Inferior Vena Cava, Percutaneous Approach (ICD-10-PCS; principal; 2019-11-28)
DX: I82.432 Acute embolism and thrombosis of left popliteal vein (principal); I26.99 Other pulmonary embolism without acute cor pulmonale; D69.3 Immune thrombocytopenic purpura; C85.90 Non-Hodgkin lymphoma, unspecified, unspecified site; E87.1 Hypo-osmolality and hyponatremia; I82.412 Acute embolism and thrombosis of left femoral vein; E11.9 Type 2 diabetes mellitus without complications; E78.5 Hyperlipidemia, unspecified; E87.6 Hypokalemia; I10 Essential (primary) hypertension; J44.9 Chronic obstructive pulmonary disease, unspecified; R09.02 Hypoxemia; Z99.81 Dependence on supplemental oxygen; Z90.710 Acquired absence of both cervix and uterus; Z92.21 Personal history of antineoplastic chemotherapy; Z90.49 Acquired absence of other specified parts of digestive tract
CPT/HCPCS: 36415; 36600; 37191; 71045; 71275; 80048; 80053; 82550; 82803; 82948; 83605; 83880; 84484; 85025; 85027; 85610; 85730; 87040; 87633; 87635; 87804; 87807; 93005; 93306; 93970; 94760; 99291; C1769; G0378; J1644; J1650; J1815; J2543; J3490; J7030; J7120; J7509; Q9967

== ENCOUNTER 2019-12-09 07:49 | Emergency (ER) | payer OTHER ==
[~2019-12-09 07:49] MED LIST changes: +ELTR50TA PO
[2019-12-09 08:21] LABS: BASOPHILS % (AUTO) 0.5 % (0.0-5.0); EOSINOPHILS % (AUTO) 2.2 % (0.0-8.0); HEMATOCRIT 34.6 % (36-48); LYMPHOCYTES % (AUTO) 11.6 % (21.0-51.0); MEAN CORPUSCULAR HEMOGLOBIN 29.9 pg (27.0-33.0); MEAN CORPUSCULAR HGB CONC 34.7 g/dL (32.0-36.0); MEAN CORPUSCULAR VOLUME 86.1 fL (79-99); MONOCYTES % (AUTO) 5.7 % (3.0-13.0); NEUTROPHILS % (AUTO) 76.2 % (40.0-77.0); PLATELET COUNT (AUTO) 23 K/uL (130-400); RED BLOOD CELL COUNT(AUTO) 4.02 MIL/uL (4.00-5.50); RED CELL DISTRIBUTION WIDTH 13.9 % (11.0-15.5); WHITE BLOOD COUNT (AUTO) 11.7 K/uL (4.8-10.8)
[2019-12-09 08:36] LABS: INR 1.03 (0.85-1.15); PARTIAL THROMBOPLASTIN TIME 21.2 SEC (26.3-35.5); PROTHROMBIN TIME 11.1 SEC (9.6-11.6)
[2019-12-09 10:20] LABS: POTASSIUM 3.7 mmol/L (3.5-5.1)
== END 2019-12-09 11:22 | disposition home or self-care (01) ==
LOC: EDH 07:49
DX: I82.813 Embolism and thrombosis of superficial veins of lower extremities, bilateral (principal); I74.9 Embolism and thrombosis of unspecified artery; E11.9 Type 2 diabetes mellitus without complications; E78.5 Hyperlipidemia, unspecified; I10 Essential (primary) hypertension
CPT/HCPCS: 36415; 71046; 80048; 82948; 85025; 85610; 85730; 93005; 93970

== ENCOUNTER → 2020-05-11 | Outpatient (CLI) | payer OTHER ==
[~2020-05-11] MED LIST changes: +NOREPINEPHRINE 4MG/NS 250ML 250 ML IV ONE
== END | disposition home or self-care (01) ==
LOC: RAH 08:52
PROVIDERS: ATTEND Family Medicine
DX: Z12.31 Encounter for screening mammogram for malignant neoplasm of breast (principal)
CPT/HCPCS: 77067

== ENCOUNTER → 2020-09-13 | Outpatient (CLI) | payer OTHER ==
[~2020-09-13] MED LIST changes: +IOHEXOL-350 75 ML VIAL IV ONE; -NOREPINEPHRINE 4MG/NS 250ML 250 ML IV ONE
== END | disposition home or self-care (01) ==
LOC: RAH 08:51
PROVIDERS: ATTEND Internal Medicine Hematology & Oncology
DX: J43.9 Emphysema, unspecified (principal); D69.3 Immune thrombocytopenic purpura; E86.0 Dehydration; J98.11 Atelectasis; I82.812 Embolism and thrombosis of superficial veins of left lower extremity; R79.9 Abnormal finding of blood chemistry, unspecified; R30.0 Dysuria; M32.9 Systemic lupus erythematosus, unspecified; D75.9 Disease of blood and blood-forming organs, unspecified; N39.0 Urinary tract infection, site not specified; C88.4 Extranodal marginal zone B-cell lymphoma of mucosa-associated lymphoid tissue [MALT-lymphoma]
CPT/HCPCS: 71275; 93970; Q9967

== ENCOUNTER → 2020-12-22 | Outpatient (CLI) | payer OTHER ==
[~2020-12-22] MED LIST changes: -IOHEXOL-350 75 ML VIAL IV ONE
== END | disposition home or self-care (01) ==
LOC: RAH 10:53
PROVIDERS: ATTEND Internal Medicine Hematology & Oncology
DX: I82.403 Acute embolism and thrombosis of unspecified deep veins of lower extremity, bilateral (principal); C88.4 Extranodal marginal zone B-cell lymphoma of mucosa-associated lymphoid tissue [MALT-lymphoma]; D69.3 Immune thrombocytopenic purpura; I82.812 Embolism and thrombosis of superficial veins of left lower extremity; M32.9 Systemic lupus erythematosus, unspecified; D75.9 Disease of blood and blood-forming organs, unspecified; N39.0 Urinary tract infection, site not specified; E86.0 Dehydration; R79.9 Abnormal finding of blood chemistry, unspecified; R30.0 Dysuria
CPT/HCPCS: 93970

== ENCOUNTER → 2021-02-09 | Outpatient (CLI) | payer OTHER | END | disposition home or self-care (01) | LOC: RAH 11:05 | PROVIDERS: ATTEND Family Medicine | DX: E11.22 Type 2 diabetes mellitus with diabetic chronic kidney disease (principal) | CPT/HCPCS: 93922 ==

== ENCOUNTER → 2021-09-25 | Outpatient (CLI) | payer OTHER | END | disposition home or self-care (01) | LOC: RAH 11:28 | PROVIDERS: ATTEND Internal Medicine Hematology & Oncology | DX: E04.2 Nontoxic multinodular goiter (principal); E20.8 Other hypoparathyroidism | CPT/HCPCS: 76536 ==

== ENCOUNTER → 2022-08-08 | Outpatient (CLI) | payer OTHER | END | disposition home or self-care (01) | LOC: RAH 10:13 | PROVIDERS: ATTEND Family Medicine | DX: Z12.31 Encounter for screening mammogram for malignant neoplasm of breast (principal) | CPT/HCPCS: 77067 ==